=== PATIENT | female | born 1975 | race Caucasian/White ===

== ENCOUNTER 2017-01-06 18:54 | Emergency (ER) | payer OTHER ==
[2017-01-06 19:04] VITALS: BP 144/71; BMI 30.9
[2017-01-06 21:20] LABS: BILIRUBIN,URINE NEGATIVE (NEGATIVE); BLOOD/HEMOGLOBIN,URINE 1+ (NEGATIVE); GLUCOSE, URINE NEGATIVE (NEGATIVE); KETONES,URINE 2+ (NEGATIVE); LEUKOCYTE ESTERASE ,URINE 1+ (NEGATIVE); NITRITES,URINE NEGATIVE (NEGATIVE); PH,URINE 6.5 (5.0 - 8.0); PROTEIN,URINE 1+ (NEGATIVE); UROBILINOGEN,URINE NORMAL (NORMAL)
[2017-01-06 21:26] LABS: APPEARANCE,URINE HAZY (CLEAR); BACTERIA,URINE TRACE /HPF (NEGATIVE); COLOR,URINE YELLOW (YELLOW); SQUAMOUS EPITHELIAL CELL,UR FEW /HPF (NEGATIVE)
--- NOTE | 2017-01-06 22:06 | CT ---
HISTORY: Hematuria, bladder pain Study: CT abdomen and pelvis without contrast Comparison: None Technique: Multiple axial images of the abdomen and pelvis were obtained without IV contrast. Dose reduction t echniques including Automated Exposure Control (AEC) and adjustment of mA and kV were utilized. Findings: Please note evaluation is limited without use of IV contrast. The visualized lung bases are clear. There is mild hepatic steatosis noted. The gallbladder is jessie l. The unenhanced spleen, pancreas and adrenal glands are unremarkable. There is left-sided hydrouret eronephrosis due to a 4 mm stone in the distal left ureter. There are additional punctate stones in t he left kidney that are nonobstructing. No free intraperitoneal air. No evidence of intestinal obstruction or inflammation. The appendix is n ormal. No free fluid identified. Normal urinary bladder. The soft tissues and osseous structures are unremarkable. The vascular structures are unremarkable. N o pathologically enlarged lymph nodes are identified. The uterus is removed. IMPRESSION: 1. Left-sided hydroureteronephrosis due to a 4 mm stone in the distal ureter. 2. Additional punctate nonobstructing left renal calculi are present. 3. Mild hepatic steatosis. Reported By:
--- NOTE | 2017-01-06 22:29 | DR.GENAD ---
HPI - PCP Primary Care Physician: Matthew - Complaint/Symptoms Chief Complaint:: "For a while now I have been having a lot of pain in my bladder and back. I have been treated for a UTI but it has not seemed to help. There was blood in my urine the last time they checked and I was supposed to go to a doctor in [place] who deals with bladder and urinary problems. I just don't know if I can wait that long though." - Source History Provided: Patient - Mode of Arrival Mode of Arrival: Ambulatory - Timing Onset of Chief Complaint: 12/06/16 PMH - PMH Past Medical History: No Past Surgical History: Yes Surgical History: , Hysterectomy - Family History History of Family Medical Conditions: Yes Family Medical History: Diabetes Mellitus, Hypertension - Social History Does patient currently use any type of tobacco product: No Have you used tobacco products in the last 12 months: No Type of Tobacco Use: None Does any household member use tobacco: No Alcohol Use: None Do you use any recreational Drugs:: No Lives With: Family Lives Where: Home - infectious screening In the last 2 months have you had wt loss of >10#?: NO Have you had fever, night sweats or hemotysis?: No Have you traveled outside the country in the last 6 months?: No Isolation: Standard ROS - Review of Systems Constitutional: negative: Diaphoresis Eyes: No Symptoms Reported ENTM: No Symptoms Reported Respiratoy: No Symptoms Reported Cardiovascular: No Symptoms Reported Gastrointestinal/Abdominal: No Symptoms Reported Genitourinary: Hematuria Neurological: No Symptoms Reported Musculoskeletal: No Symptoms Reported Integumentary: No Symptoms Reported Hematologic/Lymphatic: No Symptoms Reported Endocrine: No Symptoms Reported Psychiatric: No Symptoms Reported All Other Systems: Reviewed and Negative PE - Vital Signs Vitals: Temperature 98.3 F Pulse Rate 83 Respiratory Rate 18 Blood Pressure [Left Arm] 121/56 Blood Pressure [Right Arm] 118/64 Blood Pressure 144/71 O2 Sat by Pulse Oximetry 96 - General Limitations: No Limitations General Appearance: Alert, In No Apparent Distress - Head Head Exam: Normal Inspection, Atraumatic - Eyes Eye exam: Normal Appearance, PERRL, EOMI - ENT ENT Exam: Normal Exam External Ear Exam: Normal External Inspection TM/Canal Exam: Bilateral Normal Nose Exam: Normal Nose Exam Mouth Exam: Normal Inspection Throat Exam: Normal Inspection - Neck Neck Exam: Normal Inspection, Full ROM - Chest Chest Inspection: Normal Inspection - Respiratory Respiratory Exam: Normal Lung Sounds Bilat Respiratory Exam: Bilateral Clear to Auscultation - Cardiovascular Cardiovascular Exam: Regular Rate, Normal Rhythm - Abdominal Exam Abdominal Exam: Normal Inspection, Normal Bowel Sounds Abdominal Tenderness: LUQ - Extremities Extremities Exam: Normal Inspection, Full ROM - Back Back Exam: Normal Inspection, Full ROM - Neurologic Neurological Exam: Alert, Oriented X3, CN II-XII Intact - Psychiatric Psychiatric Exam: Normal Affect - Skin Skin Exam: Warm, Dry, Intact ROR - Labs Reviewed Laboratory: Specimen Type Clean catch urine 01/06/17 21:08 Urine Color Yellow (YELLOW) 01/06/17 21:08 Urine Appearance Hazy (CLEAR) 01/06/17 21:08 Urine pH 6.5 (5.0 - 8.0) 01/06/17 21:08 Ur Specific Critz 1.015 (1.000-1.030) 01/06/17 21:08 Urine Protein 1+ (NEGATIVE) 01/06/17 21:08 Urine Glucose (UA) Negative (NEGATIVE) 01/06/17 21:08 Urine Ketones 2+ (NEGATIVE) 01/06/17 21:08 Urine Occult Blood 1+ (NEGATIVE) 01/06/17 21:08 Urine Nitrite Negative (NEGATIVE) 01/06/17 21:08 Urine Bilirubin Negative (NEGATIVE) 01/06/17 21:08 Urine Urobilinogen Normal (NORMAL) 01/06/17 21:08 Ur Leukocyte Esterase 1+ (NEGATIVE) 01/06/17 21:08 Urine RBC 3-5 /HPF (NEGATIVE) 01/06/17 21:08 Urine WBC 3-5 /HPF (NEGATIVE) 01/06/17 21:08 Ur Squamous Epith Cells Few /HPF (NEGATIVE) 01/06/17 21:08 Urine Bacteria Trace /HPF (NEGATIVE) 01/06/17 21:08 Ur Culture Indicated? No/not indicated 01/06/17 21:08 - XRAY XRAY Interpreted by: Radiologist (CT ABD/PELV: Left sided hydroureteronephrosis due to a 4mm stone in the distal ureter. Additional punctate nonobstructing left renal calculi are present, Mild hepatic steatosis.) - Diagnosis Discharge Problem: Hydroureteronephrosis - Discharge Plan Condition: Stable - Follow ups/Referrals Follow ups/Referrals: KATHLEEN CANTRELL [Primary Care Provider] - 3 days - Instructions
== END 2017-01-06 22:34 | disposition home or self-care (01) ==
LOC: ER 19:08
DX: N13.30 Unspecified hydronephrosis (principal); K76.0 Fatty (change of) liver, not elsewhere classified
CPT/HCPCS: 74176; 81001; 99283